=== PATIENT | male | born 1970 | race Two or more races ===

== ENCOUNTER 2020-11-20 09:47 | Outpatient (REF) | payer MEDICARE, MEDICAID, SELFPAY ==
[2020-11-20 11:29] LABS: Alanine Aminotransferase 52 U/L (0-40); Albumin Level 4.5 g/dL (3.5-5.0); Alkaline Phosphatase 113 U/L (39-117); Anion Gap 14 (12-20); Aspartate Amino Transferase 35 U/L (5-37); Bilirubin Total 2.1 mg/dL (0.0-1.0); Blood Urea Nitrogen 15 mg/dL (9-16); Carbon Dioxide 27 mmol/L (22-29); Chloride 104 mmol/L (96-108); Cholesterol 168 mg/dL; Estimated Glomerular Filt Rate > 60; Glucose Fasting 96 mg/dL (60-99); HDL Cholesterol 45 mg/dL; LDL Cholesterol Calculated 108 mg/dl; Potassium 4.3 mmol/l (3.3-5.1); Sodium 141 mmol/L (135-145); Total Protein 7.4 g/dL (6.5-8.0); Triglycerides 78 mg/dL
[2020-11-20 11:38] LABS: Prostate Specific Antigen Scr 0.22 ng/mL (<0.05-4.0); TSH reflex Free T4 1.16 mIU/mL (0.32-4.0)
== END 2020-11-20 09:48 | disposition home or self-care (01) ==
LOC: HO.WFDLDS 09:47
PROVIDERS: Visit Provider Family Medicine
DX: Z00.00 Encounter for general adult medical examination without abnormal findings (principal); Z12.5 Encounter for screening for malignant neoplasm of prostate; R03.0 Elevated blood-pressure reading, without diagnosis of hypertension
CPT/HCPCS: 36415; 80053; 80061; 84153; 84443

== ENCOUNTER → 2021-01-14 09:51 | Outpatient (BNVA) | payer MEDICARE, MEDICAID, SELFPAY | PROVIDERS: PCP Family Medicine; Visit Provider Psychiatry & Neurology Neurology | DX: Z13.89 Encounter for screening for other disorder (principal) | CPT/HCPCS: Q3014 ==

== ENCOUNTER 2021-01-28 10:38 | Outpatient (REF) | payer MEDICARE, MEDICAID, SELFPAY ==
[2021-01-28 14:16] LABS: Alanine Aminotransferase 40 U/L (0-40); Albumin Level 4.4 g/dL (3.5-5.0); Alkaline Phosphatase 95 U/L (39-117); Anion Gap 11 (12-20); Aspartate Amino Transferase 29 U/L (5-37); Bilirubin Total 1.2 mg/dL (0.0-1.0); Blood Urea Nitrogen 16 mg/dL (9-16); Carbon Dioxide 28 mmol/L (22-29); Chloride 106 mmol/L (96-108); Estimated Glomerular Filt Rate > 60; Glucose Random 99 mg/dL (60-115); Potassium 4.4 mmol/L (3.3-5.1); Sodium 141 mmol/L (135-145); Total Protein 7.1 g/dL (6.5-8.0)
== END 2021-01-28 10:39 | disposition home or self-care (01) ==
LOC: HO.WFDLDS 10:38
PROVIDERS: PCP Family Medicine; Visit Provider Family Medicine
DX: R74.01 Elevation of levels of liver transaminase levels (principal)
CPT/HCPCS: 36415; 80053

== ENCOUNTER → 2021-01-30 13:02 | Outpatient (REF) | payer MEDICARE, MEDICAID, SELFPAY | LOC: HO.SL 13:02 | PROVIDERS: PCP Family Medicine; Visit Provider Psychiatry & Neurology Neurology | DX: G47.33 Obstructive sleep apnea (adult) (pediatric) (principal) | CPT/HCPCS: 95806 ==

== ENCOUNTER → 2021-04-07 09:13 | Outpatient (BNVA) | payer MEDICARE, MEDICAID, SELFPAY | PROVIDERS: PCP Family Medicine; Visit Provider Anesthesiology | DX: M96.1 Postlaminectomy syndrome, not elsewhere classified (principal); M47.817 Spondylosis without myelopathy or radiculopathy, lumbosacral region; G90.512 Complex regional pain syndrome I of left upper limb; G89.4 Chronic pain syndrome; R10.84 Generalized abdominal pain | CPT/HCPCS: 99212 ==

== ENCOUNTER → 2021-04-08 10:26 | Outpatient (BNVA) | payer MEDICARE, MEDICAID, SELFPAY | PROVIDERS: PCP Family Medicine; Referring Provider Family Medicine; Visit Provider Psychiatry & Neurology Neurology | DX: G47.33 Obstructive sleep apnea (adult) (pediatric) (principal) | CPT/HCPCS: 99212 ==

== ENCOUNTER → 2021-04-21 09:14 | Outpatient (BNVA) | payer MEDICARE, MEDICAID, SELFPAY | PROVIDERS: PCP Family Medicine; Visit Provider Anesthesiology | DX: M96.1 Postlaminectomy syndrome, not elsewhere classified (principal); M47.817 Spondylosis without myelopathy or radiculopathy, lumbosacral region; G90.512 Complex regional pain syndrome I of left upper limb; R10.84 Generalized abdominal pain; G89.4 Chronic pain syndrome | CPT/HCPCS: 99212 ==

== ENCOUNTER → 2021-12-23 10:50 | Outpatient (BNVA) | payer MEDICARE, MEDICAID, SELFPAY | PROVIDERS: PCP Family Medicine; Referring Provider Family Medicine; Visit Provider Psychiatry & Neurology Neurology | DX: G47.33 Obstructive sleep apnea (adult) (pediatric) (principal) | CPT/HCPCS: 99212 ==

== ENCOUNTER 2023-05-19 12:39 | Outpatient (REF) | payer MEDICARE, MEDICAID, SELFPAY ==
[2023-05-21 16:54] LABS: CRP High Sensitivity 1.7 mg/L
== END 2023-05-19 12:40 | disposition home or self-care (01) ==
LOC: HO.WFDLDS 12:39
PROVIDERS: Visit Provider Family Medicine
DX: Z00.00 Encounter for general adult medical examination without abnormal findings (principal); Z12.5 Encounter for screening for malignant neoplasm of prostate; M54.50 Low back pain, unspecified; I10 Essential (primary) hypertension
CPT/HCPCS: 36415; 80053; 80061; 81003; 82043; 84153; 84443; 85025; 85652; 86141

== ENCOUNTER 2023-06-16 07:57 | Outpatient (AMB) | payer MEDICARE, MEDICAID, SELFPAY ==
[2023-06-16 07:58] VITALS: BMI 31.9
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
== END 2023-06-16 08:56 | disposition home or self-care (01) ==
PROVIDERS: PCP Family Medicine; Visit Provider Orthopaedic Surgery
DX: M65.311 Trigger thumb, right thumb (principal); M65.331 Trigger finger, right middle finger; M18.11 Unilateral primary osteoarthritis of first carpometacarpal joint, right hand; R20.2 Paresthesia of skin
CPT/HCPCS: 99204

== ENCOUNTER → 2023-06-16 07:57 | Outpatient (BNVA) | payer MEDICARE, MEDICAID, SELFPAY | PROVIDERS: PCP Family Medicine; Visit Provider Orthopaedic Surgery | DX: M65.311 Trigger thumb, right thumb (principal); M65.331 Trigger finger, right middle finger; M18.11 Unilateral primary osteoarthritis of first carpometacarpal joint, right hand; R20.2 Paresthesia of skin; R20.0 Anesthesia of skin | CPT/HCPCS: 99202 ==

== ENCOUNTER 2023-07-16 13:06 | Outpatient (AMB) | payer MEDICARE, MEDICAID, SELFPAY ==
[2023-07-16 13:20] VITALS: BP 122/70; PULSE 58; O2SAT 97; BMI 32.8
--- NOTE | 2023-07-16 13:20 | MHC.PC.OV ---
Vital Signs 07/16/23 13:20 Height 5 ft 7 in Weight 209 lb 4 oz BMI 32.8 BP 122/70 Blood Pressure Location Lt brachial Position Sitting Pulse 58 Pulse Source Pulse Oximeter Pulse Oximetry (%) 97 Oxygen Delivery Method Room Air Intake Visit Reasons: Extended exam with f/u labs and health maintenance Intake Note: Patient is here for extended exam and follow up on labs. Patientr would like a referral to [facility] on [address] Hand is still hurting him and his back pain. Allergies ibuprofen [From Motrin] Allergy (Mild, Verified 07/16/23 13:26) RASH tramadol Allergy (Unknown, Verified 07/16/23 13:26) hives Tobacco use date assessed: 07/16/23 Dental Screening Dental Screen Date: 07/16/23 Did you have a dental visit in the last 12 months?: Yes Did you have a dental problem in the last 6 months where you did not have access to dental care?: No Was dental information given to patient?: Patient has dentist HPI Extended exam with f/u labs and health maintenance HPI Details 53 y/o male presents to for an extended exam with f/u labs and health maintenance. Labs were drawn 05/19/23. Reviewed labs with pt. Triglycerides 41. TC 132. LDL 76. HDL 48. Microalbumin/Creat ratio 34.6. He has been eating a healthy diet. He rides his bike every morning. Blood pressure today is 122/70. He is on lisinopril 20mg daily. Pt reports ongoing hand pain/swelling. He reports he thinks last colonoscopy was 2-3 years ago at [place]. [facility] Medical History Cervical postlaminectomy syndrome Chronic pain syndrome Complex regional pain syndrome i of left upper limb Generalized abdominal pain Spondylosis without myelopathy or radiculopathy, lumbosacral region Surgical History History of lumbar fusion History of neck surgery History of surgery on left wrist Family History Father Throat cancer Mother Type 2 diabetes mellitus Breast cancer Sister Stomach cancer Social History (Reviewed 07/16/23 @ 13:27 by Zulema Iglesias [facility] House Patient Tobacco Use Status: Former Tobacco user Tobacco use type: Cigarette Cigarette Packs Per Day: 2 Years Smoked: 15 patient quit in November this year. 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 1. Little interest or pleasure in doing things: not at all 2. Feeling down, depressed, or hopeless: not at all 3. Trouble falling or staying asleep, or sleeping too much: not at all 4. Feeling tired or having little energy: not at all 5. Poor appetite or overeating: not at all 6. Feeling bad about yourself - or that you are a failure or have let yourself or your family down: not at all 7. Trouble concentrating on things, such as reading the newspaper or watching television: not at all 8. Moving or speaking so slowly that other people could have noticed. Or the opposite - being so fidgety or restless that you have been moving around a lot more than usual: not at all 9. Thoughts that you would be better off or of hurting yourself in some way: not at all Total score: 0 Source: Developed by Drs. Len Gonzalez, Raegan James, Dago Richardson and colleagues, with an educational virginie from [employer]. Thrive Questionnaire I am a: Patient What is your living situation today?: I have a steady place to live Within the past 12 months, did the food you bought not last and you didn't have the money to get more?: Never true Within the past 12 months, did you worry whether your food would run out before you got money to buy more?: Never true Do you have trouble paying for medicines?: No Do you have trouble getting transportation to medical appointments?: No Do you have trouble paying your heating and electricity bill?: No Do you have trouble taking care of your child, family member or friend?: No Do you have trouble with day-to-day activities such as bathing, preparing meals, shopping, managing finances, etc.?: No Are you currently unemployed and looking for a job?: No Are you interested in more education?: No AUDIT C Alcohol Use Questionnaire (AUDIT-C) 1. How often do you have a drink containing alcohol?: Monthly or less 2. How many drinks containing alcohol do you have on a typical day when you are drinking?: 1 or 2 3. How often do you have six or more drinks on one occasion?: Never Total Score: 1 MORGAN-7 AMB Questionnaire MORGAN-7 Date MORGAN - 7 assessed: 07/16/23 Feeling nervous, anxious, or on edge: 0 = Not at all Not being able to stop or control worryin = Not at all Worrying too much about different things: 0 = Not at all Trouble relaxin = Not at all Being so restless that it is hard to sit still: 0 = Not at all Becoming easily annoyed or irritable: 0 = Not at all Feeling afraid as if something awful might happen: 0 = Not at all Total MORGAN-7 score (0-4 normal; 5-9 mild; 10-14 moderate; 15-21 severe): 0 Source: Developed by Drs. Len Gonzalez, Raegan James, Dago Richardson and colleagues, with an educational virginie from [employer]. Review of Systems Const Denies chills, Denies fatigue, Denies fever(s), Denies headache(s) and Denies weakness Eyes Denies change in vision ENT Denies dizziness, Denies headache(s), Denies hearing loss, Denies nasal congestion, Denies sinus pain, Denies sinus pressure and Denies sore throat Card Denies chest pain, Denies lightheadedness, Denies dyspnea and Denies other (palpitations) Resp Denies cough, Denies dyspnea and Denies wheezing GI Denies abdominal pain, Denies melena, Denies hematochezia, Denies change in bowel habits, Denies dyspepsia and Denies nausea Denies hematuria and Denies dysuria Musc Denies abnormal gait, Denies myalgias, Denies arthralgias, Denies numbness and Denies tingling Skin/Breast Denies rash, Denies unusual bruising and Denies wounds Neuro Denies abnormal gait, Denies dizziness, Denies headache(s), Denies memory loss, Denies numbness, Denies Sensory deficit (Neuro), Denies tingling and Denies weakness Psych Denies anxiety, Denies depression and Denies memory loss Endo Denies cold intolerance, Denies fatigue, Denies heat intolerance, Denies polydipsia and Denies polyuria Valentin/Lymph Denies easy bleeding and Denies easy bruising Aller/Immun Denies wheezing Physical exam (Primary Care) Vital Signs: Last Vital Signs Pulse 58 07/16/23 13:20 BP 122/70 07/16/23 13:20 Pulse Ox 97 07/16/23 13:20 Oxygen Delivery Method Room Air 07/16/23 13:20 BMI result Body Mass Index 32.8 Tobacco/Smoking Status: Tobacco use Status Tobacco use date assessed 07/16/23 07/16/23 13:34 Patient Tobacco Use Status Former Tobacco user 07/16/23 13:24 Tobacco use type Cigarette 07/16/23 13:24 e-Cigarette/Vaping Use Never Used 07/16/23 13:24 PHQ-9: PHQ-9 Score PHQ-9: Total score 0 07/16/23 14:15 Const General: no acute distress, well developed, alert and awake Nutritional Appearance: well nourished Orientation/consciousness: patient oriented x3 HENMT Head: Yes normocephalic and Yes atraumatic Ears: hearing grossly normal bilaterally and TM's normal bilaterally General nose exam: Normal external nose present and Normal nares present Mouth: Normal oral and palatal mucosa present and moist mucous membranes Teeth and gingiva: dentition normal Throat: Yes posterior oropharynx normal Eyes General: appearance normal, both eyes and all related structures Pupils: Equal, round and reactive pupils present and Pupil accommodation reflex normal EOM: EOMs intact bilaterally Neck Neck: Yes normal visual inspection, Yes no lymphadenopathy and Yes trachea midline Thyroid: Thyroid normal Carotids: no bruits Lymphatic: no lymphadenopathy noted Chest Chest palpation & inspection: normal inspection of the chest Resp Effort & Inspection: normal respiratory effort Auscultation: clear to auscultation bilaterally Cardio Rate: regular rate Rhythm: regular rhythm Heart sounds: S1 normal heart sound present, S2 normal heart sound present, no gallops, no murmurs and no rubs Bruits: no abdominal aortic bruits and no carotid bruits GI Palpation (GI): No Abdominal aortic bruit present, Soft to palpation, nontender, No hepatosplenomegaly present and No Rebound tenderness present Auscultation: normal bowel sounds General: Yes no CVA tenderness Back/Spine/Pelvis Back: no CVA tenderness Cervical Spine: cervical ROM normal and No Cervical spine tenderness Thoracic/Lumbar Spine: thoraco-lumbar ROM normal, No pain with thoraco-lumbar ROM, No thoracic spinal tenderness and No lumbar spinal tenderness Skin Lesions: no lesions Rashes: no rashes Trauma: no lacerations or abrasions Wounds: no wounds Nails: normal Neuro General: patient oriented x3 Cranial nerves: Yes Equal, round and reactive pupils present Cognition (Neuro): normal cognition Gait exam (Neuro): Normal gait present Motor exam (neuro): 5/5 motor strength present throughout Sensory Exam: No Sensory deficit (Neuro) Deep tendon reflexes (DTR's): Right patellar reflex intensity grade: 2+ and Left patellar reflex intensity grade: 2+ Extrem General: Yes normal to inspection and Yes edema (R wrist swelling and pain, decreased range of motion) Psych Appearance: grossly normal Affect: normal affect Attitude: cooperative Thought process: Normal thought process present Assessment and Plan Assessment & Plan (1) Hypertension: Code(s): I10 - Essential (primary) hypertension Plan: Blood pressure appears controlled. Goal is less than 140/90 Continue current medication (2) Microalbuminuria: Code(s): R80.9 - Proteinuria, unspecified Plan: Mild microalbuminuria. Will repeat with next lab work Maintain good blood pressure control (3) Screening for colon cancer: Code(s): Z12.11 - Encounter for screening for malignant neoplasm of colon Plan: Will get prior record and refer patient as needed (4) Screening for prostate cancer: Code(s): Z12.5 - Encounter for screening for malignant neoplasm of prostate Plan: PSA within normal limits (5) Right hand pain: Code(s): M79.641 - Pain in right hand Plan: Ongoing right hand pain and swelling. Referring him to Hand surgery, Dr. Haynes (6) Adult general medical exam: Code(s): Z00.00 - Encounter for general adult medical examination without abnormal findings Plan: 53-year-old male presents for extended exam Encouraged healthy diet with active lifestyle and plenty of exercise Orders: Orders Comprehensive Met. Panel Today I10 - Essential (primary) hypertension Microalbumin, Random (w Creat) Today I10 - Essential (primary) hypertension, R80.9 - Proteinuria, unspecified Referrals Hand Surgery Referral M65.311 - Trigger thumb, right thumb, M79.641 - Pain in right hand, R20.0 - Anesthesia of skin, R20.2 - Paresthesia of skin Medications: New prednisone 4 tabs daily for 4 days, 3 tabs daily for 2 days, 2 tabs daily for 2 days, 1 tab daily for 2 days PO daily; 28 tabs 0RF 10 days oxycodone-acetaminophen 5-325 mg (Percocet) Partial Fill upon patient request. 1 tab PO BID PRN 6 tabs 0RF pain 3 days Coding Level of Care Code Est Pt Level 4 (57464) Diagnoses Hypertension I10 Microalbuminuria R80.9 Screening for colon cancer Z12.11 Screening for prostate cancer Z12.5 Right hand pain M79.641 Adult general medical exam Z00.00
== END 2023-07-16 14:47 | disposition home or self-care (01) ==
PROVIDERS: PCP Family Medicine; Visit Provider Family Medicine
DX: I10 Essential (primary) hypertension (principal); R80.9 Proteinuria, unspecified; Z12.11 Encounter for screening for malignant neoplasm of colon; Z12.5 Encounter for screening for malignant neoplasm of prostate; M79.641 Pain in right hand; Z00.00 Encounter for general adult medical examination without abnormal findings
CPT/HCPCS: 99214

== ENCOUNTER 2023-10-28 12:06 | Outpatient (REF) | payer MEDICARE, MEDICAID, SELFPAY ==
[2023-10-28 14:56] LABS: Alanine Aminotransferase 49 U/L (0-40); Albumin Level 4.3 g/dL (3.5-5.0); Alkaline Phosphatase 71 U/L (39-117); Anion Gap 10 (12-20); Aspartate Amino Transferase 38 U/L (5-37); Bilirubin Total 1.2 mg/dL (0.0-1.0); Blood Urea Nitrogen 15 mg/dL (9-16); Calcium 9.7 mg/dL (8.4-10.2); Carbon Dioxide 26 mmol/L (22-29); Chloride 107 mmol/L (96-108); Estimated Glomerular Filt Rate > 60; Glucose Random 102 mg/dL (60-115); Potassium 4.2 mmol/L (3.3-5.1); Sodium 139 mmol/L (135-145); Total Protein 7.6 g/dL (6.5-8.0)
== END 2023-10-28 12:07 | disposition home or self-care (01) ==
LOC: HO.WFDLDS 12:06
PROVIDERS: Visit Provider Family Medicine
DX: I10 Essential (primary) hypertension (principal)
CPT/HCPCS: 36415; 80053

== ENCOUNTER 2023-11-01 11:36 | Outpatient (REF) | payer MEDICARE, MEDICAID, SELFPAY ==
[2023-11-02 11:49] LABS: Appearance Urine Clear; Color Urine Yellow; Glucose Urine UA Negative (Negative); Leukocyte Esterase Urine Negative (Negative); Nitrite Urine Negative (Negative); PH 7.5 (5.0-9.0); Urine Blood Negative (Negative); Urine Ketones Negative (Negative); Urine Protein Negative (Neg-Trace)
[2023-11-02 12:56] LABS: Creatinine Urine 55.93 mg/dL; Microalbum/Creatinine Ratio Ur 64.3 ug/mg cr (<30)
== END 2023-11-01 11:37 | disposition home or self-care (01) ==
LOC: HO.LNP 11:36
PROVIDERS: Visit Provider Family Medicine
DX: Z00.00 Encounter for general adult medical examination without abnormal findings (principal); R80.9 Proteinuria, unspecified; I10 Essential (primary) hypertension
CPT/HCPCS: 81003; 82043; 82570

== ENCOUNTER 2023-11-01 15:32 | Outpatient (AMB) | payer MEDICARE, MEDICAID, SELFPAY ==
--- NOTE | 2023-11-01 15:49 | MHC.PC.OV ---
Vital Signs 11/01/23 15:50 Height 5 ft 7 in Weight 215 lb 2 oz BMI 33.7 BP 128/76 Blood Pressure Location Lt brachial Position Sitting Pulse 76 Pulse Source Pulse Oximeter Pulse Oximetry (%) 97 Oxygen Delivery Method Room Air Intake Visit Reasons: f/u hypertension and microalbuminuria Intake Note: Patient is here to follow up on hypertension and microalbuminuria. Allergies ibuprofen [From Motrin] Allergy (Mild, Verified 11/01/23 15:53) RASH tramadol Allergy (Unknown, Verified 11/01/23 15:53) hives Tobacco use date assessed: 11/01/23 HPI f/u hypertension and microalbuminuria HPI Details 53 y/o male presents to f/u hypertension and microalbuminuria. Labs were drawn 10/28/23. Reviewed labs with pt. Elevated liver enzymes - AST 38 and ALT 49. Creatinine levels are fine. Blood pressure today 128/76. He is on lisinopril 20mg daily. [facility] History Chronic pain syndrome Generalized abdominal pain Complex regional pain syndrome i of left upper limb Spondylosis without myelopathy or radiculopathy, lumbosacral region Cervical postlaminectomy syndrome Surgical History History of neck surgery History of lumbar fusion History of surgery on left wrist Family History Father Throat cancer Mother Type 2 diabetes mellitus Breast cancer Sister Stomach cancer Social History Housing: House Patient Tobacco Use Status: Former Tobacco user Tobacco use type: Cigarette Cigarette Packs Per Day: 2 Years Smoked: 15 patient quit in November this year. 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 Len Gonzalez, Raegan James, Dago Richardson and colleagues, with an educational virginie from [employer]. Review of Systems Const Denies chills, Denies fatigue, Denies fever(s), Denies headache(s) and Denies weakness ENT Denies dizziness and Denies headache(s) Card Denies chest pain, Denies lightheadedness, Denies dyspnea and Denies other (Palpitations) Resp Denies cough, Denies dyspnea, Denies wheezing and Denies other ( shortness of breath) Musc Denies numbness and Denies tingling Neuro Denies dizziness, Denies headache(s), Denies numbness, Denies tingling, Denies paresthesias and Denies weakness Psych Denies anxiety and Denies depression Endo Denies fatigue Aller/Immun Denies wheezing Physical exam (Primary Care) Vital Signs: Last Vital Signs Pulse 76 11/01/23 15:50 BP 128/76 11/01/23 15:50 Pulse Ox 97 11/01/23 15:50 Oxygen Delivery Method Room Air 11/01/23 15:50 BMI result Body Mass Index 33.7 Tobacco/Smoking Status: Tobacco use Status Tobacco use date assessed 11/01/23 11/01/23 15:56 Patient Tobacco Use Status Former Tobacco user 11/01/23 15:50 Tobacco use type Cigarette 11/01/23 15:50 e-Cigarette/Vaping Use Never Used 11/01/23 15:50 Const General: no acute distress and well developed Nutritional Appearance: well nourished Orientation/consciousness: patient oriented x3 [facility]: Yes normocephalic and Yes atraumatic Eyes General: appearance normal, both eyes and all related structures Pupils: Equal, round and reactive pupils present EOM: EOMs intact bilaterally Resp Effort & Inspection: normal respiratory effort Auscultation: clear to auscultation bilaterally Cardio Rate: regular rate Rhythm: regular rhythm Heart sounds: S1 normal heart sound present, S2 normal heart sound present, no gallops, no murmurs and no rubs Neuro General: patient oriented x3 and gait normal Cranial nerves: Yes Equal, round and reactive pupils present Psych Affect: normal affect Assessment and Plan Assessment & Plan (1) Hypertension: Code(s): I10 - Essential (primary) hypertension Plan: Blood?pressure?is?controlled.??Goal?is?less?than?140/90 He?took?his?lisinopril?today?but?he?does?not?take?it?every?day Encouraged?more?consistent?use (2) Microalbuminuria: Code(s): R80.9 - Proteinuria, unspecified Plan: Encouraged?consistent?use?of?lisinopril Will?recheck?with?next?set?of?lab (3) Elevated liver enzymes: Code(s): R74.8 - Abnormal levels of other serum enzymes Plan: Likely?fatty?liver?disorder?and?I?encouraged?weight?loss Will?recheck?labs?with?next?blood?draw Orders: Orders Comprehensive Met. Panel Today R74.8 - Abnormal levels of other serum enzymes Microalbumin, Random (w Creat) Today I10 - Essential (primary) hypertension, R80.9 - Proteinuria, unspecified UA and rflx microscopic Today R80.9 - Proteinuria, unspecified, Z00.00 - Encounter for general adult medical examination without abnormal findings Medications: Refilled oxycodone-acetaminophen 5-325 mg (Percocet) Partial Fill upon patient request. 1 tab PO BID 3 days PRN 6 tabs 0RF pain Coding Level of Care Code Est Pt Level 4 (79568) Diagnoses Hypertension I10 Microalbuminuria R80.9 Elevated liver enzymes R74.8
[2023-11-01 15:50] VITALS: BP 128/76; PULSE 76; O2SAT 97; BMI 33.7
== END 2023-11-01 16:56 | disposition home or self-care (01) ==
PROVIDERS: PCP Family Medicine; Visit Provider Family Medicine
DX: I10 Essential (primary) hypertension (principal); R80.9 Proteinuria, unspecified; R74.8 Abnormal levels of other serum enzymes
CPT/HCPCS: 99214

== ENCOUNTER 2023-12-06 07:43 | Outpatient (AMB) | payer MEDICARE, MEDICAID, SELFPAY ==
--- NOTE | 2023-12-06 08:08 | MHC.PC.OV ---
Vital Signs 12/06/23 08:09 Height 5 ft 7 in Weight 211 lb BMI 33.0 BP 122/82 Blood Pressure Location Lt brachial Position Sitting Respiration 13 Pulse 79 Pulse Source Pulse Oximeter Pulse Oximetry (%) 97 Oxygen Delivery Method Room Air Intake Visit Reasons: follow up ongoing pain Intake Note: Patient is here for ongoing R hand pain. Patient is having surgery on 02/23/24 at [facility] with Dr. Haynes. Patient called in about 2 weeks ago due to flying to [place] to visit his mother and needing a few tablets of pain medication to assist with pain. Patient also states while he was in [place] he caught a cold. Vending Machine Host/Hostess Required: No Accompanied by: Self / Same As Patient Allergies ibuprofen [From Motrin] Allergy (Mild, Verified 12/06/23 08:24) RASH tramadol Allergy (Unknown, Verified 12/06/23 08:24) hives Medication List - Last Reconciled 12/06/23 by Regla Hall, [employer]-BC flu vac qs 2019(4 yr up)CD(PF) mL IM lidocaine 5% (Lidoderm) 2 patches topical DAILY 30 days lisinopril 20 mg PO DAILY Tobacco use date assessed: 12/06/23 Dental Screening Dental Screen Date: 12/06/23 Did you have a dental visit in the last 12 months?: Yes Did you have a dental problem in the last 6 months where you did not have access to dental care?: No Was dental information given to patient?: Patient has dentist HPI HPI Comments History of Present Illness Details Here today requesting narcotics for chronic pain. Reports chronic pain, managed by PCP Denies being active w/ Pain Mgmt at [facility] anymore. Pain today is in R hand/wrist. Active w/ hand specialist w/ plan for surgery in February 2024. Also c/o cold like sx that developed about 2 weeks ago in [place]. CC of dry Cough. UTD on vaccines. Denies fever, chills. [facility] Medical History Chronic pain syndrome Generalized abdominal pain Complex regional pain syndrome i of left upper limb Spondylosis without myelopathy or radiculopathy, lumbosacral region Cervical postlaminectomy syndrome Surgical History History of neck surgery History of lumbar fusion History of surgery on left wrist Family History Father Throat cancer Mother Type 2 diabetes mellitus Breast cancer Sister Stomach cancer Social History Household Members: Spouse and Children Housing: House Are you a primary after school caregiver to a significant other at home: No Do you presently have visiting nurse or other home services: No 75 years or older and lives alone: No Alcohol intake: never Patient Tobacco Use Status: Former Tobacco user Tobacco use type: Cigarette Cigarette Packs Per Day: 2 Years Smoked: 15 patient quit in November this year. e-Cigarette/Vaping Use: Never Used Second Hand Smoke Exposure: No service: No Current occupational status: disabled Current occupational exposures/hazards: No Sexual orientation: Unable to collect Gender identity: Unable to collect Cognitive needs: No Hearing needs: No Vision needs: No Questionnaire PHQ-9 Over the last 2 weeks, how often have you been bothered by any of the following problems? 1. Little interest or pleasure in doing things: not at all 2. Feeling down, depressed, or hopeless: not at all 3. Trouble falling or staying asleep, or sleeping too much: not at all 4. Feeling tired or having little energy: not at all 5. Poor appetite or overeating: not at all 6. Feeling bad about yourself - or that you are a failure or have let yourself or your family down: not at all 7. Trouble concentrating on things, such as reading the newspaper or watching television: not at all 8. Moving or speaking so slowly that other people could have noticed. Or the opposite - being so fidgety or restless that you have been moving around a lot more than usual: not at all 9. Thoughts that you would be better off or of hurting yourself in some way: not at all Total score: 0 Depression Screening Interpretation: Negative Depression Screening Done: Yes 16115 - PHQ-9 Billing: Yes Source: Developed by Drs. Len Gonzalez, Raegan James, Dago Richardson and colleagues, with an educational virginie from [employer]. Thrive Questionnaire Date Thrive assessed: 12/06/23 I am a: Patient What is your living situation today?: I have a steady place to live Within the past 12 months, did the food you bought not last and you didn't have the money to get more?: Never true Within the past 12 months, did you worry whether your food would run out before you got money to buy more?: Never true Do you have trouble paying for medicines?: No Do you have trouble getting transportation to medical appointments?: No Do you have trouble paying your heating and electricity bill?: No Do you have trouble taking care of your child, family member or friend?: No Do you have trouble with day-to-day activities such as bathing, preparing meals, shopping, managing finances, etc.?: No Are you currently unemployed and looking for a job?: No Are you interested in more education?: No Please select the resources that you would like help with: None Currently or been in a relationship where the following occur: no concerns reported THRIVE Score: 0 MORGAN-7 AMB Questionnaire MORGAN-7 Date MORGAN - 7 assessed: 07/16/23 Source: Developed by Drs. Len Gonzalez, Raegan James, Dago Richardson and colleagues, with an educational virginie from [employer]. Review of Systems Const All systems reviewed & are unremarkable except as noted in HPI and below Physical exam (Primary Care) Vital Signs: Last Vital Signs Pulse 79 12/06/23 08:09 Resp 13 12/06/23 08:09 BP 122/82 12/06/23 08:09 Pulse Ox 97 12/06/23 08:09 Oxygen Delivery Method Room Air 12/06/23 08:09 BMI result Body Mass Index 33.0 Tobacco/Smoking Status: Tobacco use Status Tobacco use date assessed 12/06/23 12/06/23 08:20 Patient Tobacco Use Status Former Tobacco user 12/06/23 08:20 Tobacco use type Cigarette 12/06/23 08:20 e-Cigarette/Vaping Use Never Used 12/06/23 08:20 PHQ-9: PHQ-9 Score PHQ-9: Total score 0 12/06/23 08:29 Depression Screening Interpretation: Negative Thrive Assessment: Date of Thrive Assessment Date Thrive assessed 12/06/23 12/06/23 08:21 Currently or been in a relationship where the following occur: no concerns reported Const Other: awake alert pleasant pupils pinpoint LS CTAB RRR Assessment and Plan Assessment & Plan (1) Numbness and tingling in right hand: Code(s): R20.0 - Anesthesia of skin; R20.2 - Paresthesia of skin (2) Arthritis of carpometacarpal (CMC) joint of right thumb: Code(s): M18.11 - Unilateral primary osteoarthritis of first carpometacarpal joint, right hand (3) Trigger middle finger of right hand: Code(s): M65.331 - Trigger finger, right middle finger (4) Trigger thumb of right hand: Code(s): M65.311 - Trigger thumb, right thumb (5) Viral URI with cough: Code(s): J06.9 - Acute upper respiratory infection, unspecified Plan Total time spent caring for the patient today was 60 minutes. This includes time spent before the visit reviewing the chart, time spent during the visit, and time spent after the visit on documentation Medications: New oxycodone-acetaminophen 5-325 mg (Percocet) Partial Fill upon patient request. 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 FU with Hand Surgeon. Supportive care for Viral illness w/ OTC medications. Coding Level of Care Code Est Pt Level 5 (79065) Diagnoses Numbness and tingling in right hand R20.0; R20.2 Arthritis of carpometacarpal (CMC) joint of right thumb M18.11 Trigger middle finger of right hand M65.331 Trigger thumb of right hand M65.311 Viral URI with cough J06.9
[2023-12-06 08:09] VITALS: BP 122/82; PULSE 79; RESP 13; O2SAT 97; BMI 33.0
== END 2023-12-06 08:52 | disposition home or self-care (01) ==
PROVIDERS: PCP Family Medicine; Visit Provider Nurse Practitioner Family
DX: R20.0 Anesthesia of skin (principal); R20.2 Paresthesia of skin; M18.11 Unilateral primary osteoarthritis of first carpometacarpal joint, right hand; M65.331 Trigger finger, right middle finger; M65.311 Trigger thumb, right thumb; J06.9 Acute upper respiratory infection, unspecified
CPT/HCPCS: 99215

== ENCOUNTER 2024-02-14 14:36 | Outpatient (AMB) | payer MEDICARE, MEDICAID, SELFPAY ==
[2024-02-14 14:41] VITALS: BP 122/76; PULSE 76; O2SAT 98; BMI 33.2
--- NOTE | 2024-02-14 14:41 | A.OFFPC_ITS ---
Vital Signs 02/14/24 14:41 Height 5 ft 7 in Weight 212 lb BMI 33.2 BP 122/76 Blood Pressure Location Lt brachial Position Sitting Pulse 76 Pulse Source Pulse Oximeter Pulse Oximetry (%) 98 Oxygen Delivery Method Room Air Intake Visit Reasons: f/u hypertension, elevated liver enzymes Intake Note: Patient is here to follow up on hypertension and liver enzymes, and is having hand surgery on the . Allergies ibuprofen [From Motrin] Allergy (Mild, Verified 02/14/24 14:42) RASH tramadol Allergy (Unknown, Verified 02/14/24 14:42) hives Tobacco use date assessed: 02/14/24 Dental Screening Dental Screen Date: 12/06/23 HPI f/u hypertension, elevated liver enzymes HPI Details 53 y/o male presents to f/u hypertension , elevated liver enzymes. Blood pressure today 122/76. He is on lisinopril 20mg daily. Pt notes he is having hand surgery on the . Patient presents for preoperative clearance prior to?carpal?tunnel?surgery Procedure: ?Carpal?tunnel?release Date:02/23/24 Surgeon: Dr Haynes Anesthesia:??General Cardiac Hx: None Pulmonary Hx: None Prior Surgical complications: Ventral hernia dehiscence & infection. L wrist surgery infection. Prior Anesthesia Complications: None Coag Issues: none Functional [place]: Good functional reserve. Able to walk multiple city blocks/climb flights of stairs. [facility] Medical History Chronic pain syndrome Generalized abdominal pain Complex regional pain syndrome i of left upper limb Spondylosis without myelopathy or radiculopathy, lumbosacral region Cervical postlaminectomy syndrome Surgical History History of neck surgery History of lumbar fusion History of surgery on left wrist Family History Father Throat cancer Mother Type 2 diabetes mellitus Breast cancer Sister Stomach cancer Social History Household Members: Spouse and Children Housing: House Are you a primary hospice home care coordinator to a significant other at home: No Do you presently have visiting nurse or other home services: No 75 years or older and lives alone: No Alcohol intake: never Patient Tobacco Use Status: Former Tobacco user Tobacco use type: Cigarette Cigarette Packs Per Day: 2 Years Smoked: 15 patient quit in November this year. e-Cigarette/Vaping Use: Never Used Second Hand Smoke Exposure: No service: No Current occupational status: disabled Current occupational exposures/hazards: No Sexual orientation: Unable to collect Gender identity: Unable to collect Cognitive needs: No Hearing needs: No Vision needs: No Questionnaire Thrive Questionnaire Date Thrive assessed: 12/06/23 MORGAN-7 AMB Questionnaire MORGAN-7 Date MORGAN - 7 assessed: 07/16/23 Source: Developed by Drs. Len Gonzalez, Raegan James, Dago Richardson and colleagues, with an educational virginie from [employer]. Physical exam (Primary Care) Vital Signs: Last Vital Signs Pulse 76 02/14/24 14:41 BP 122/76 02/14/24 14:41 Pulse Ox 98 02/14/24 14:41 Oxygen Delivery Method Room Air 02/14/24 14:41 BMI result Body Mass Index 33.2 Tobacco/Smoking Status: Tobacco use Status Tobacco use date assessed 02/14/24 02/14/24 14:43 Patient Tobacco Use Status Former Tobacco user 02/14/24 14:43 Tobacco use type Cigarette 02/14/24 14:43 e-Cigarette/Vaping Use Never Used 02/14/24 14:43 Thrive Assessment: Date of Thrive Assessment Date Thrive assessed 12/06/23 02/14/24 14:43 Assessment and Plan Assessment & Plan (1) Carpal tunnel syndrome: Code(s): G56.00 - Carpal tunnel syndrome, unspecified upper limb Plan: Carpal?tunnel?syndrome?and?patient?has?upcoming?surgery?on?February?. Here?for?preoperative?clearance. No?prior?cardiac?disease?or?pulmonary?disease. Cardiac?and?pulmonary?exams?today?are?within?normal?limits No?prior?complications?with?anesthesia. No?coagulopathies He?has?had?prior?surgical?infections?and?dehiscence. Good?functional?reserve Low?intermediate?risk?patient?for?low?risk?procedure *?no?contraindications?to?proceeding?with?proposed?procedure Will?give?him?a?short?script?to?cover?pain?until?the?day?of?his?surgery.??Pain?c ontrol?in?the?postoperative.??As?per?surgeon. (2) Hypertension: Code(s): I10 - Essential (primary) hypertension Plan: Blood?pressure?is?well?controlled.??Goal?is?less?than?140/90 Continue?current?medication?regimen (3) Elevated transaminase level: Code(s): R74.01 - Elevation of levels of liver transaminase levels Plan: Mildly?elevated?transaminases Likely?secondary?to?fatty?liver?disorder?and?I?recommend?weight?loss Will?recheck?with?his?next?blood?draw (4) Pre-operative clearance: Code(s): Z01.818 - Encounter for other preprocedural examination Plan: As?above *?no?contraindications?to?proceeding?with?proposed?surgery (5) Ventral hernia: Code(s): K43.9 - Ventral hernia without obstruction or gangrene Plan: History?of?ventral?hernia?and?surgery?with?complications. More?recently?is?having?pain?slightly?left?of?midline?and?mild?impulse?with?call Check?ultrasound?and?refer?him?to?his?surgeon,?DrEren?Ashish Orders: Orders US abdomen limited Today K43.9 - Ventral hernia without obstruction or gangrene Complete Blood Count Auto Diff Today Z00.00 - Encounter for general adult medical examination without abnormal findings, Z01.818 - Encounter for other preprocedural examination Comprehensive Met. Panel Today R74.8 - Abnormal levels of other serum enzymes Referrals General Surgery Referral K43.9 - Ventral hernia without obstruction or gangrene Coding Level of Care Code Est Pt Level 4 (29357) Diagnoses Carpal tunnel syndrome G56.00 Hypertension I10 Elevated transaminase level R74.01 Pre-operative clearance Z01.818 Ventral hernia K43.9
== END 2024-02-14 15:06 | disposition home or self-care (01) ==
PROVIDERS: PCP Family Medicine; Visit Provider Family Medicine
DX: G56.00 Carpal tunnel syndrome, unspecified upper limb (principal); I10 Essential (primary) hypertension; R74.01 Elevation of levels of liver transaminase levels; Z01.818 Encounter for other preprocedural examination; K43.9 Ventral hernia without obstruction or gangrene
CPT/HCPCS: 99214

== ENCOUNTER 2024-03-10 09:18 | Outpatient (REF) | payer MEDICARE, MEDICAID, SELFPAY ==
--- NOTE | ~2024-03-10 | US_ITS ---
EXAMINATION: US ABDOMEN LIMITED CLINICAL INFORMATION: Ventral hernia without obstruction or gangrene. Left lower abdomen by umbilicus possible ventral hernia without obstruction or gangrene. No previous imaging. COMPARISON: None available. TECHNIQUE: Real-time imaging of the left lower abdomen by umbilicus. FINDINGS: Targeted ultrasound images were obtained by the supervisor benzene refining of the area of concern as indicated by the patient in the left lower abdomen in the region of the umbilicus and demonstrated no discrete hernia, mass or fluid collection. Limited visualization due to bowel gas. Radiologist was not in attendance. Images were later provided for interpretation. US/US abdomen limited IMPRESSION: No discrete hernia, mass or fluid collection identified in the area of concern as indicated by the patient in the left lower abdomen in the region of the umbilicus. CT scan could be considered for further evaluation..
== END 2024-03-10 09:19 | disposition home or self-care (01) ==
LOC: HO.US 09:18
PROVIDERS: PCP Family Medicine; Visit Provider Family Medicine
DX: K43.9 Ventral hernia without obstruction or gangrene (principal)
CPT/HCPCS: 76705

== ENCOUNTER 2024-10-27 10:42 | Outpatient (AMB) | payer MEDICARE, MEDICAID, SELFPAY ==
--- NOTE | 2024-10-27 11:05 | MHC.PC.OV ---
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 Blood pressure today 152/96. He is on lisinopril 20mg daily. He notes he had forgotten to take this today. Ongoing complaints of back pain. [facility] Medical History (Updated 10/27/24 @ 11:07 by Katherine Gannon CMA) Umbilical hernia Chronic pain syndrome Generalized abdominal pain Complex regional pain syndrome i of left upper limb Spondylosis without myelopathy or radiculopathy, lumbosacral region Cervical postlaminectomy syndrome Surgical History History of carpal tunnel surgery of right wrist History of neck surgery History of lumbar fusion History of surgery on left wrist Family History Father Throat cancer Mother Type 2 diabetes mellitus Breast cancer Sister Stomach cancer Social History (Updated 10/27/24 @ 11:18 by Katherine Gannon CMA) Household Members: Spouse and Children Housing: House Are you a primary auto care center manager to a significant other at home: No Do you presently have visiting nurse or other home services: No 75 years or older and lives alone: No Alcohol intake: never Patient Tobacco Use Status: Former Tobacco user Tobacco use type: Cigarette Cigarette Packs Per Day: 2 Years Smoked: 15 patient quit in November this year. e-Cigarette/Vaping Use: Never Used Second Hand Smoke Exposure: No service: No Current occupational status: disabled Current occupational exposures/hazards: No Sexual orientation: Unable to collect Gender identity: Unable to collect Cognitive needs: No Hearing needs: No Vision needs: No Questionnaire PHQ-9 Over the last 2 weeks, how often have you been bothered by any of the following problems? 1. Little interest or pleasure in doing things: not at all 2. Feeling down, depressed, or hopeless: not at all 3. Trouble falling or staying asleep, or sleeping too much: several days 4. Feeling tired or having little energy: several days 5. Poor appetite or overeating: not at all 6. Feeling bad about yourself - or that you are a failure or have let yourself or your family down: not at all 7. Trouble concentrating on things, such as reading the newspaper or watching television: not at all 8. Moving or speaking so slowly that other people could have noticed. Or the opposite - being so fidgety or restless that you have been moving around a lot more than usual: not at all 9. Thoughts that you would be better off or of hurting yourself in some way: not at all Total score: 2 Source: Developed by Drs. Len Gonzalez, Raegan James, Dago Richardson and colleagues, with an educational virginie from [employer]. Thrive Questionnaire Date Thrive assessed: 10/20/24 I am a: Patient What is your living situation today?: I have a steady place to live Within the past 12 months, did the food you bought not last and you didn't have the money to get more?: Often true Within the past 12 months, did you worry whether your food would run out before you got money to buy more?: I choose not to answer this question Do you have trouble paying for medicines?: No Do you have trouble getting transportation to medical appointments?: No Do you have trouble paying your heating and electricity bill?: Yes Do you have trouble taking care of your child, family member or friend?: No Do you have trouble with day-to-day activities such as bathing, preparing meals, shopping, managing finances, etc.?: Yes Are you currently unemployed and looking for a job?: No Are you interested in more education?: No Please select the resources that you would like help with: Food, Transportation and Utilities Currently or been in a relationship where the following occur: No concerns reported THRIVE Score: 2 AUDIT C Alcohol Use Questionnaire (AUDIT-C) 2. How many drinks containing alcohol do you have on a typical day when you are drinking?: 1 or 2 Total Score: 0 MORGAN-7 AMB Questionnaire MORGAN-7 Date MORGAN - 7 assessed: 07/16/23 Feeling nervous, anxious, or on edge: 0 = Not at all Not being able to stop or control worryin = Not at all Worrying too much about different things: 0 = Not at all Trouble relaxin = Several days Being so restless that it is hard to sit still: 1 = Several days Becoming easily annoyed or irritable: 1 = Several days Feeling afraid as if something awful might happen: 0 = Not at all Total MORGAN-7 score (0-4 normal; 5-9 mild; 10-14 moderate; 15-21 severe): 3 Source: Developed by Drs. Len Gonzalez, Raegan James, Dago Richardson and colleagues, with an educational virginie from [employer]. Review of Systems Const Denies chills, Denies fatigue, Denies fever(s), Denies headache(s) and Denies weakness ENT Denies dizziness and Denies headache(s) Card Denies dyspnea Resp Denies cough, Denies dyspnea, Denies wheezing and Denies other (shortness of breath) Musc Reports back pain, Denies numbness and Denies tingling Neuro Denies dizziness, Denies headache(s), Denies numbness, Denies tingling and Denies weakness Psych Denies anxiety and Denies depression Endo Denies fatigue Aller/Immun Denies wheezing Physical exam (Primary Care) Vital Signs: Last Vital Signs Pulse 71 10/27/24 11:08 BP 152/96 H 10/27/24 11:13 Pulse Ox 99 10/27/24 11:08 Oxygen Delivery Method Room Air 10/27/24 11:08 BMI result Body Mass Index 34.2 Tobacco/Smoking Status: Tobacco use Status Tobacco use date assessed 02/14/24 10/27/24 11:11 Patient Tobacco Use Status Former Tobacco user 10/27/24 11:18 Tobacco use type Cigarette 10/27/24 11:18 e-Cigarette/Vaping Use Never Used 10/27/24 11:18 PHQ-9: PHQ-9 Score PHQ-9: Total score 2 10/27/24 11:11 Thrive Assessment: Date of Thrive Assessment Date Thrive assessed 10/20/24 10/27/24 11:11 Currently or been in a relationship where the following occur: No concerns reported Const General: well developed; No acute distress Nutritional Appearance: well nourished Orientation/consciousness: patient oriented x3 [facility] Head: Yes normocephalic and Yes atraumatic Eyes General: appearance normal, both eyes and all related structures Pupils: Equal, round and reactive pupils present EOM: EOMs intact bilaterally Resp Effort & Inspection: normal respiratory effort Auscultation: clear to auscultation bilaterally Cardio Rate: regular rate Rhythm: regular rhythm Heart sounds: S1 normal heart sound present, S2 normal heart sound present, no gallops, no murmurs and no rubs Neuro General: patient oriented x3 and gait normal Cranial nerves: Yes Equal, round and reactive pupils present Psych Affect: normal affect Coding Level of Care Code Est Pt Level 4 (75173) Diagnoses Hypertension I10 Low back pain M54.5 Assessment & Plan Assessment & Plan (1) Hypertension: Code(s): I10 - Essential (primary) hypertension Category: Medical Plan: Blood?pressure?is?elevated?today?but?patient?forgot?to?take?his?medication. He?says?his?blood?pressures?at?home?are?130s?systolic. Goal?is?less?than?140/90 Continue?current?medication.??Reminded?him?to?take?medication?as?prescribed. Encouraged?weight?loss.??Patient?gained?weight?since?last?check. (2) Low back pain: Code(s): M54.5 - Low back pain Category: Medical Plan: Patient?has?longstanding?intermittent?flares?of?back?pain. Managed?with?lidocaine.??Occasionally?pain?worsens. Not?using?chronic?use?of?opioids?but?will?provide?intermittent?short?courses?for?flare?up. Patient?uses?a?back?brace?and?advised?to?use?when?he?is?exerting?himself.??Otherwise?should?take?this?off. I?think?he?would?benefit?from?physical?therapy.??Patient?agrees?and?would?also?like?to?then exercise?at?the?[employer]?to?continue?exercise?and?strengthening?back?and?core?muscles Orders: Orders PT Evaluation and Treatment Today M47.817 - Spondylosis without myelopathy or radiculopathy, lumbosacral region Medications: New oxycodone-acetaminophen 5-325 mg (Percocet) Partial Fill upon patient request. 1 tab PO BID 3 days PRN 6 tabs 0RF pain Refilled lidocaine 5% (Lidoderm) leave on most painful area for up to 12 hrs 2 patches topical DAILY 30 days 60 ea 3RF lisinopril 20 mg PO DAILY 90 tabs 1RF I10 - Essential (primary) hypertension Discontinued oxycodone-acetaminophen 5-325 mg (Percocet) Partial Fill upon patient request. Discontinued Reason: Patient Completed Course 1 tab PO BID 3 days PRN 6 tabs 0RF pain
[2024-10-27 11:08] VITALS: BP 144/98; PULSE 71; O2SAT 99; BMI 34.2
[2024-10-27 11:13] VITALS: BP 152/96
== END 2024-10-27 11:49 | disposition home or self-care (01) ==
PROVIDERS: PCP Family Medicine; Visit Provider Family Medicine
DX: I10 Essential (primary) hypertension (principal); M54.50 Low back pain, unspecified

== ENCOUNTER → 2024-10-27 10:42 | Outpatient (BNVA) | payer MEDICARE, MEDICAID, SELFPAY | PROVIDERS: PCP Family Medicine; Visit Provider Family Medicine | DX: I10 Essential (primary) hypertension (principal); M54.50 Low back pain, unspecified | CPT/HCPCS: 99212 ==

== ENCOUNTER 2025-09-27 08:50 | Outpatient (AMB) | payer MEDICARE, SELFPAY ==
--- NOTE | 2025-09-27 09:01 | A.OFFPC_ITS ---
Vital Signs 09/27/25 09:08 Height 5 ft 7 in Weight 211 lb 6 oz BMI 33.1 BP 130/80 Blood Pressure Location Rt brachial Position Sitting Respiration 16 Pulse 58 Pulse Source Pulse Oximeter Temp 97.8 F Temp Source Oral Pulse Oximetry (%) 97 Oxygen Delivery Method Room Air Intake Visit Reasons: CPE with f/u labs and health maint. - see comments Intake Note: patient is scheduled for CPE Cat Scan Technologist Required: No Allergies ibuprofen (From Motrin) Allergy (Mild, Verified 09/27/25 09:05) RASH tramadol Allergy (Unknown, Verified 09/27/25 09:05) hives Medication List - Last Reconciled 09/27/25 by Sam Almazan MD lidocaine 5% (Lidoderm) 2 patches topical DAILY 30 days lisinopril 20 mg PO DAILY oxycodone-acetaminophen 5-325 mg (Percocet) 1 tab PO BID PRN 3 days Tobacco use date assessed: 09/27/25 Dental Screening Dental Screen Date: 09/27/25 Did you have a dental visit in the last 12 months?: Yes Did you have a dental problem in the last 6 months where you did not have access to dental care?: No Was dental information given to patient?: No HPI CPE with f/u labs and health maint. - see comments HPI Details 55 y/o male presents for a CPE with f/u labs and health maint. No recent labs to review. BP today 130/80, 58p. He is on lisinopril 20mg daily. HPI Comments History of Present Illness Details Documentation assistance for Sam Almazan MD, was provided by Maxx Marques,? Animal Taxonomist on 09/26/2025 at 9:33 AM KIRILL. I, Dr. Almazan, have read, observed, and verified documentation. ?? [facility] Medical History Umbilical hernia Chronic pain syndrome Generalized abdominal pain Complex regional pain syndrome i of left upper limb Spondylosis without myelopathy or radiculopathy, lumbosacral region Cervical postlaminectomy syndrome Surgical History History of carpal tunnel surgery of right wrist History of neck surgery History of lumbar fusion History of surgery on left wrist Family History Father Throat cancer Mother Type 2 diabetes mellitus Breast cancer Sister Stomach cancer Social History Household Members: Spouse and Children Housing: House Are you a primary career technical counselor to a significant other at home: No Do you presently have visiting nurse or other home services: No 75 years or older and lives alone: No Alcohol intake: never Patient Tobacco Use Status: Former Tobacco user Tobacco use type: Cigarette Cigarette Packs Per Day: 2 Years Smoked: 15 patient quit in November this year. e-Cigarette/Vaping Use: Never Used Second Hand Smoke Exposure: No service: No Current occupational status: disabled Current occupational exposures/hazards: No Sexual orientation: Unable to collect Gender identity: Unable to collect Cognitive needs: No Hearing needs: No Vision needs: No Questionnaire PHQ-9 Over the last 2 weeks, how often have you been bothered by any of the following problems? 1. Little interest or pleasure in doing things: nearly every day 2. Feeling down, depressed, or hopeless: not at all 3. Trouble falling or staying asleep, or sleeping too much: not at all 4. Feeling tired or having little energy: not at all 5. Poor appetite or overeating: not at all 6. Feeling bad about yourself - or that you are a failure or have let yourself or your family down: not at all 7. Trouble concentrating on things, such as reading the newspaper or watching television: not at all 8. Moving or speaking so slowly that other people could have noticed. Or the opposite - being so fidgety or restless that you have been moving around a lot more than usual: not at all 9. Thoughts that you would be better off or of hurting yourself in some way: not at all Total score: 3 Depression Screening Interpretation: Negative Depression Screening Done: Yes 75015 - PHQ-9 Billing: Yes Source: Developed by Drs. Len Gonzalez, Raegan James, Dago Richardson and colleagues, with an educational virginie from [employer] Thrive Questionnaire Date Thrive assessed: 09/27/25 I am a: Patient What is your living situation today?: I have a steady place to live Within the past 12 months, did the food you bought not last and you didn't have the money to get more?: Never true Within the past 12 months, did you worry whether your food would run out before you got money to buy more?: Never true Do you have trouble paying for medicines?: No Do you have trouble getting transportation to medical appointments?: No Do you have trouble paying your heating and electricity bill?: No Do you have trouble taking care of your child, family member or friend?: No Do you have trouble with day-to-day activities such as bathing, preparing meals, shopping, managing finances, etc.?: No Are you currently unemployed and looking for a job?: No Are you interested in more education?: No Please select the resources that you would like help with: None Currently or been in a relationship where the following occur: No concerns reported THRIVE Score: 0 AUDIT C Alcohol Use Questionnaire (AUDIT-C) 1. How often do you have a drink containing alcohol?: 2-4 times a month 2. How many drinks containing alcohol do you have on a typical day when you are drinking?: 1 or 2 3. How often do you have six or more drinks on one occasion?: Never Total Score: 2 Score Reviewed/Action Taken: Yes MORGAN-7 AMB Questionnaire MORGAN-7 Date MORGAN - 7 assessed: 09/27/25 Feeling nervous, anxious, or on edge: 0 = Not at all Not being able to stop or control worryin = Not at all Worrying too much about different things: 0 = Not at all Trouble relaxin = Not at all Being so restless that it is hard to sit still: 0 = Not at all Becoming easily annoyed or irritable: 0 = Not at all Feeling afraid as if something awful might happen: 0 = Not at all Total MORGAN-7 score (0-4 normal; 5-9 mild; 10-14 moderate; 15-21 severe): 0 Source: Developed by Drs. Len Gonzalez, Raegan James, Dago Richardson and colleagues, with an educational virginie from [employer] MORGAN-7 Assessment Billing MORGAN-7 Assessment Tool: MORGAN-7 Assessment 19839 ACT Questionnaire In the past 4 weeks, how much of the time did your asthma keep you from getting as much done at work, school or at home?: None of the time During the past 4 weeks, how often have you had shortness of breath?: Not at all During the past 4 weeks, how often did your asthma symptoms wake you up at night or earlier than usual in the morning?: Not at all During the past 4 weeks, how often have you had to use your rescue inhaler or nebulizer medication?: Not at all How would you rate your asthma control during the past 4 weeks?: Completely controlled ACT Interpretation: Negative Score: 25 Review of Systems Const Denies chills, Denies fatigue, Denies fever(s), Denies headache(s) and Denies weakness Eyes Denies change in vision ENT Denies dizziness, Denies headache(s), Denies hearing loss, Denies nasal congestion, Denies sinus pain, Denies sinus pressure and Denies sore throat Card Denies chest pain, Denies lightheadedness, Denies dyspnea and Denies other (palpitations) Resp Denies cough, Denies dyspnea and Denies wheezing GI Denies abdominal pain, Denies melena, Denies hematochezia, Denies change in bowel habits, Denies dyspepsia and Denies nausea Denies hematuria and Denies dysuria Musc Denies abnormal gait, Denies myalgias, Denies arthralgias, Denies numbness and Denies tingling Skin/Breast Denies rash, Denies unusual bruising and Denies wounds Neuro Denies abnormal gait, Denies dizziness, Denies headache(s), Denies memory loss, Denies numbness, Denies Sensory deficit (Neuro), Denies tingling and Denies weakness Psych Denies anxiety, Denies depression and Denies memory loss Endo Denies cold intolerance, Denies fatigue, Denies heat intolerance, Denies polydipsia and Denies polyuria Valentin/Lymph Denies easy bleeding and Denies easy bruising Aller/Immun Denies wheezing Physical exam (Primary Care) Vital Signs: Last Vital Signs Temp 97.8 F 09/27/25 09:08 Pulse 58 09/27/25 09:08 Resp 16 09/27/25 09:08 BP 130/80 09/27/25 09:08 Pulse Ox 97 09/27/25 09:08 Oxygen Delivery Method Room Air 09/27/25 09:08 BMI result Body Mass Index 33.1 Tobacco/Smoking Status: Tobacco use Status Tobacco use date assessed 09/27/25 09/27/25 09:11 Patient Tobacco Use Status Former Tobacco user 09/27/25 09:02 Tobacco use type Cigarette 09/27/25 09:02 e-Cigarette/Vaping Use Never Used 09/27/25 09:02 PHQ-9: PHQ-9 Score PHQ-9: Total score 3 09/27/25 09:26 Depression Screening Interpretation: Negative Thrive Assessment: Date of Thrive Assessment Date Thrive assessed 09/27/25 09/27/25 09:11 Currently or been in a relationship where the following occur: No concerns reported Const General: no acute distress, well developed, alert and awake Nutritional Appearance: well nourished Orientation/consciousness: patient oriented x3 HENMT Head: Yes normocephalic and Yes atraumatic Ears: hearing grossly normal bilaterally and TM's normal bilaterally General nose exam: Normal external nose present and Normal nares present Mouth: Normal oral and palatal mucosa present and moist mucous membranes Teeth and gingiva: dentition normal Throat: Yes posterior oropharynx normal Eyes General: appearance normal, both eyes and all related structures Pupils: Equal, round and reactive pupils present and Pupil accommodation reflex normal EOM: EOMs intact bilaterally Neck Neck: Yes normal visual inspection, Yes no lymphadenopathy and Yes trachea midline Thyroid: Thyroid normal Carotids: no bruits Lymphatic: no lymphadenopathy noted Chest Chest palpation & inspection: normal inspection of the chest Resp Effort & Inspection: normal respiratory effort Auscultation: clear to auscultation bilaterally Cardio Rate: regular rate Rhythm: regular rhythm Heart sounds: S1 normal heart sound present, S2 normal heart sound present, no gallops, no murmurs and no rubs Bruits: no abdominal aortic bruits and no carotid bruits GI Palpation (GI): No Abdominal aortic bruit present, Soft to palpation, nontender, No hepatosplenomegaly present and No Rebound tenderness present Auscultation: normal bowel sounds General: Yes no CVA tenderness Back/Spine/Pelvis Back: no CVA tenderness Cervical Spine: cervical ROM normal and No Cervical spine tenderness Thoracic/Lumbar Spine: thoraco-lumbar ROM normal, No pain with thoraco-lumbar ROM, No thoracic spinal tenderness and No lumbar spinal tenderness Skin Lesions: no lesions Rashes: no rashes Trauma: no lacerations or abrasions Wounds: no wounds Nails: normal Neuro General: patient oriented x3 Cranial nerves: Yes Equal, round and reactive pupils present Cognition (Neuro): normal cognition Gait exam (Neuro): Normal gait present Motor exam (neuro): 5/5 motor strength present throughout Sensory Exam: No Sensory deficit (Neuro) Deep tendon reflexes (DTR's): Right patellar reflex intensity grade: 2+ and Left patellar reflex intensity grade: 2+ Extrem General: Yes normal to inspection and No edema Psych Appearance: grossly normal Affect: normal affect Attitude: cooperative Thought process: Normal thought process present Coding Level of Care Code Est Pt Level 3 (93941) Est Pt Prev Care 40-64y(88639) Diagnoses Adult general medical exam Z00.00 Hypertension I10 Screening for prostate cancer Z12.5 Screening for colon cancer Z12.11 Additional Codes Asthma Control Questionnaire - ACT Interpretation: Negative ([id number]) MORGAN-7 Assessment Billing - MORGAN-7 Assessment Tool: MORGAN-7 Assessment 82359 ([id number]) PHQ-9 - 33937 - PHQ-9 Billing: Yes ([id number]) Assessment & Plan Assessment & Plan (1) Adult general medical exam: Code(s): Z00.00 - Encounter for general adult medical examination without abnormal findings Category: Medical Plan: 55-year-old male presents for complete physical exam Encouraged healthy diet with active lifestyle and plenty of exercise (2) Hypertension: Code(s): I10 - Essential (primary) hypertension Category: Medical Plan: Blood pressure is controlled. Goal is less than 140/90 Continue current medication (3) Screening for prostate cancer: Code(s): Z12.5 - Encounter for screening for malignant neoplasm of prostate Category: Medical Plan: Checking PSA with lab work (4) Screening for colon cancer: Code(s): Z12.11 - Encounter for screening for malignant neoplasm of colon Category: Medical Plan: Patient thinks he had a colonoscopy around age 48 He will try to let us know where this was performed and we get the report.
[2025-09-27 09:08] VITALS: BP 130/80; PULSE 58; RESP 16; TEMP 36.6; O2SAT 97; BMI 33.1
== END 2025-09-27 09:34 | disposition home or self-care (01) ==
LOC: HO.HMCFM 08:51
PROVIDERS: PCP Family Medicine; Visit Provider Family Medicine
DX: Z00.00 Encounter for general adult medical examination without abnormal findings (principal); I10 Essential (primary) hypertension; Z12.5 Encounter for screening for malignant neoplasm of prostate

== ENCOUNTER → 2025-09-27 08:50 | Outpatient (BNVA) | payer MEDICARE, SELFPAY | PROVIDERS: PCP Family Medicine; Visit Provider Family Medicine | DX: Z00.00 Encounter for general adult medical examination without abnormal findings (principal); I10 Essential (primary) hypertension | CPT/HCPCS: 96127; 96160; 99396 ==

== ENCOUNTER 2025-10-05 09:40 | Outpatient (REF) | payer MEDICARE, SELFPAY ==
--- OUTSIDE RECORDS SUMMARY | 2025-10-05 10:21 | XMS_ITS | Patient Health Record ---
Author Organization [facility] Address [address] [place] [id number] Care Team Providers Care Sales Assistant Entertainment And Media Name Role Phone Sam Almazan Primary Care Provider Len Christian [phone] Allergies Allergen (clinical drug ingredient) Drug/Non Drug Allergy documented on EMR Reaction Allergy Type Onset Date Status Motrin Unknown Drug Allergy Active tramadol Tramadol HCl Unknown Drug Allergy Acti ve Reason For Referral No Information Medications Medication SIG (Take, Route, Frequency, Duration) Notes Start Date End Date Status Lidocaine 5 % Patch 1 patch remove after 12 hours Externally Once a day Active Cyclobenzaprine HCl 10 MG Tablet TAKE 1 TABLET BY MOUTH TWICE A DAY FOR 10 DAYS Oral; Duration: 10 Active oxyCODONE-Acetaminophen 5-32 5 MG Tablet 1 tablet as needed Orally every 6 hrs Active Gabapentin 100 MG Capsule 2 CAPSULE TWIC E A DAY ORALLY 15 DAYS Oral; Duration: 20 Active Immunizations Vaccine Route Administration Date Status Comme nts Influenza Unknown 08/09/2019 Administered Social History Tobacco Use: Social History Observation Description Date Details (start date - stop date) Current Smoker NA - NA Social History Drugs/Alcohol: Social Info Question Answer Notes Alcohol Screen Did you have a drink containing alcohol in the past year? Yes How often did you have a drink containing alcohol in the past year? Monthly or less (1 point) How many drinks did you have on a typical day when you were drinking in the past year? 1 or 2 drinks (0 point) How often did you have 6 or more drinks on one occasion in the past year? Never (0 point) Points 1 Interpretation Negative Tobacco Use: Social Info Question Answer Notes Tobacco Use/Smoking Patient is a current smoker How often do you smoke cigarettes? some days, but not every day How many cigarettes a day do you smoke? 5 or less How soon after you wake up do you smoke your first cigarette? after 60 minutes Are you interested in quitting? Ready to quit Additional Details Category Social Info Options Details Miscellaneous: Marital status: Occupation: disabled Section Notes: Smoker 1 pack per week; no s ig alcohol Problems Problem Type SNOMED Code ICD Code Onset Dates Problem Status W/U Status Risk Notes Problem Screening for malignant neoplasm of colon (298644213) Encounter for screening for malignant neoplasm of colon (Z12.11) Active confirmed Problem Preprocedural examination ([id number]) Preprocedural examination (Z01.818) Active confirmed Plan Of Treatment Pending Test Test Name Order Date GI BIOPSY 01/08/2020 Future Test Test Name Order Date COLONOSCOPY 11/22/2019 Insurance Providers Payer Name Payer Address Payer Phone Subscriber Number Group Number Insured Name Patient Relationship to Insured Coverage Start Date Coverage End Date MEDICARE OF [place] [address] [place] [id number] HUMPHREY REESE Self - patient is the insured MEDICAID OF [facility] [address] [place] [address] [id number] HUMPHREY REESE Self - patient is the insured Medical (General) History Medical History History ICD Code Denies AL,DM,CVA,Lung disease,renal dise ase Chronic back pain and left wrist pain Sleep apnea--not using the CPAP regularl y Surgical History Surgery Date(Month/Year) Hernia repair with mesh >15 times Neck surgery for C-spine Back surgery for a stimulator but this w as subsequently removed Knee surgery- both Carpal tunnel release-left Multiple wrist surgeries from a fracture - left
--- OUTSIDE RECORDS SUMMARY | 2025-10-05 10:21 | XMS_ITS | Clinical Summary ---
Author Organization [facility] Address [address] [place] [address] Phone Care Team Providers Care Adzing And Boring Machine Operator Name Role Phone Sam Almazan MD Primary Care Provider Allergies Active Allergy Reactions Criticality Noted Date Comments Acetaminophen Rash Medium 04/17/2024 Ibuprofen Hives Medium 03/08/2006 occ. GI upset Tramadol Hives Medium 10/01/2006 Medications lisinopriL (PRINIVIL,ZESTR IL) 10 mg tablet Take 1 Tablet by mouth daily. Active senna-docusate (PERICOLACE) 8.6-50 mg per tablet Take 2 tablets by mouth at bedtime. 30 tablet 02/01/2025 Active Active Problems Problem Noted Date Diagnosed Date Obstructive sleep apnea syndrome 02/01/2025 HTN (hypertension) 02/01/2025 Arthritis of carpometacarpal (CMC) joint of righ t thumb 11/21/2023 Right carpal tunnel syndrome 11/21/2023 Cervicalgia 10/13/2006 Chest pain 10/13/2006 Umbilical hernia without obstruction and without gangrene 10/13/2006 Lumbago 09/26/2006 Resolved Problems Problem Noted Date Diagnosed Date Resolved Date Chronic obstructive pulmonar y disease (CMS/HCC V24, CMS/HCC V28) 02/01/2025 02/01/2025 Surgical History Surgery Date Site/Laterality Comments CARPAL TUNNEL RELEASE 02/23/2024 Right TRIGGER FINGER RELEASE 02/23/2024 Right long finger MENISCECTOMY DUPUYTREN CONTRACTURE RELEASE CERVICAL DISCECTOMY FINGER SURGERY 02/01/2025 Right thumb, trapeziectomy w/ interpostional arthroplasty Medical History Medical History Date Comments Hypertension RICHARD (obstructive sleep apnea) US ES CPAP Chronic pain of right thumb Social History Tobacco Use Types Packs/Day Years Used Date Smoking Tobacco: Former Cigarettes 0 Q uit: 2021 Smokeless Tobacco: Never Tobacco Cessation:Counseling Given: Not Answered Alcohol Use Standard Drinks/Week Comments Yes 0 (1 standard drink = 0.6 oz pur e alcohol) SOCIALLY Sex and Gender Information Value Date Recorded Sex Assigned at Male 02/01/2025 8:49 AM EDT Legal Sex Male 8:29 AM EST Gender Identity Male 02/01/2025 8:49 AM EDT Sexual Orientation Straight 02/01/2025 8: 49 AM EDT Obstetrics History Last Filed Vital Signs Vital Sign Reading Time Taken Comments Blood Pressure 121/94 02/01/2025 1:49 PM EDT Pulse 66 02/01/2025 1:49 PM EDT Temperature 35.7 C (96.3 F) 02/01/2025 1:49 PM EDT Respiratory Rate 20 02/01/2025 1:49 PM EDT Oxygen Saturation 95% 02/01/2025 1:49 PM EDT Inhaled Oxygen Concentration - - Weight 97.5 kg (215 lb) 04/13/2025 9:46 AM EDT Height 170.2 cm (5' 7 ) 04/13/2025 9:46 AM EDT Body Mass Index 33.67 04/13/2025 9:46 AM EDT Plan of Treatment Health Maintenance Due Date Last Done Comments Colorectal Cancer Screening: Colonoscopy 1968 Hepatitis A Vaccines (1 of 2 - Risk 2-dose series) 1987 Hepatitis B Vaccines (1 of 3 - 19+ 3-dose series) 1987 HIV Screening 06/13/2024 Hepatitis C Screening 06/13/2024 Medicare Annual Wellness Visit 06/13/2024 Social Influencers of Health Screening 06/13/2024 Depression Screening 11/15/2024 Hypertension/CHF/CAD Annual BMP Blood Test 02/01/2025 07/10/2008 COVID-19 Vaccine ( season) 2025 07/19/2024, 08/08/2023, 05/16/2022, Additional history exists Cholesterol Screening (Lipid Panel) 12/24/2028 12/24/2023 DTaP,Tdap,and Td Vaccines (2 - Td or Tdap) 10/24/2034 10/24/2024 RSV Immunization Adult Patients (1 - 1-dose 75+ series) 2043 Pneumococcal Vaccine: 50+ Years Completed 10/24/2024 Zoster Vaccines Completed 10/24/2024, 08/02/2024 Influenza Vaccine Completed 07/11/2025, , 08/08/2023, Additional history exists HIB Vaccines Aged Out No longer eligi ble based on patient's age to complete this topic HPV Vaccines Aged Out No longer eligi ble based on patient's age to complete this topic IPV Vaccines Aged Out No longer eligi ble based on patient's age to complete this topic MMR Vaccines Aged Out No longer eligi ble based on patient's age to complete this topic Meningococcal ACWY Vaccine Aged Out N o longer eligible based on patient's age to complete this topic Meningococcal B Vaccine Aged Out No l onger eligible based on patient's age to complete this topic RSV Immunization Patients Under 20 months Aged Out No longer eligible based on patient's age to complete this topic Varicella Vaccines Aged Out No longer eligible based on patient's age to complete this topic Medical Devices Implanted Type Area Temperer Device Identifier Shelf Expiration Date Model / Serial / Lot [employer] Sut Quick Mini 3-0 Orth - Sn/A - [id number] Implanted:Qty: 1 on 02/01/2025 by Rashmi Haynes MD at [facility] [employer] Sports Med Right: Thumb [employer] DEPUY MITEK 05/14/2027 [id number] / N/A / [id number] Spinal Hardware Spinal Hardware N/A: Neck Procedures Procedure Name Priority Date/Time Associated Diagnosis Comments LIPID PANEL Routine 12/24/2023 ANNUAL BMP BLOOD TEST Routine 07/10/2008 from Last 3 Months or Most Recently Relevant to Health Maintenance Results * Lipid panel (12/24/2023) LDL/HDL Ratio 3 <=5 Triglycerides 134 <=200 mg/dL Cholesterol 179 <=240 mg/dL HDL 53 >=40 mg/dL LDL Cholesterol 100 <=190 mg/dL Blood Venous blood specimen / Unknown Historical Provider LAB BLOOD ORDERABLES Yamile l Result * Annual BMP Blood Test (07/10/2008) Pathologist [facility] Annual BMP Blood Test Abstracted Historical Provider HEALTH MAINTENANCE Final Result from Last 3 Months or Most Recently Relevant to Health Maintenance Insurance [place] [address] MEDICAID - [place] Advance Directives * Full Code - Default (Latest Code Status on File) Date Activated Date Inactivated Comments 02/01/2025 8:57 AM 02/01/2025 5:01 PM This is orde r is used when code status has not been discussed with the patient, or code status is otherwise unknown/unconfirmed To update the patient's code status, place a code status order. Do not modify or discontinue any currently active code status orders. Care Teams Adzing And Boring Machine Operator Relationship Specialty Start Date End Date Sam Almazan MD [address] [place] [address] Dr Saleem [place] PCP - General 07/02/23
[2025-10-05 11:28] LABS: MANUAL DIFF FLAG NO
[2025-10-05 11:43] LABS: Hematocrit 47.0 % (42.0-52.0); Hemoglobin 15.5 g/dl (14.0-18.0); Imm Gran Abs Auto 0.02 X10*3/uL (0.00-0.03); Imm Gran Pct Auto 0.4 % (0.0-0.4); Lymphocytes Absolute Auto 1.9 X10*3/uL (1.2-4.9); Mean Corpuscular HGB Conc 33.0 g/dl (31.0-36.0); Mean Corpuscular Hemoglobin 29.5 pg (27.0-33.0); Mean Corpuscular Volume 89.4 fL (80.0-98.0); NRBC Abs Auto 0.000 X10*3/uL (0.0-0.012); NRBC Pct Auto 0.0 /100WBC (0.0-0.2); Platelet Count 135 X10*3/uL (160-400); Red Blood Count 5.26 X10*6/uL (4.60-5.80); White Blood Count 4.6 X10*3/uL (4.8-10.8)
[2025-10-05 12:09] LABS: Alanine Aminotransferase 43 U/L (0-40); Albumin Level 4.5 g/dL (3.5-5.0); Alkaline Phosphatase 86 U/L (39-117); Anion Gap 11 (12-20); Aspartate Amino Transferase 43 U/L (5-37); Blood Urea Nitrogen 21 mg/dL (9-16); Calcium 8.9 mg/dL (8.4-10.2); Carbon Dioxide 26 mmol/L (22-29); Chloride 108 mmol/L (96-108); Estimated Glomerular Filt Rate > 60; Potassium 4.4 mmol/L (3.3-5.1); Sodium 141 mmol/L (135-145); Total Protein 7.3 g/dL (6.5-8.0)
[2025-10-05 14:14] LABS: Appearance Urine Clear; Glucose Urine UA Negative (Negative); PH 6.0 (5.0-9.0); Specific Gravity - Urine 1.020 (1.005-1.025)
[2025-10-05 15:01] LABS: Microalbum/Creatinine Ratio Ur 52.3 ug/mg cr (<30)
== END 2025-10-05 09:41 | disposition home or self-care (01) ==
LOC: HO.WFDLDS 09:40
PROVIDERS: Visit Provider Family Medicine
DX: Z00.00 Encounter for general adult medical examination without abnormal findings (principal); Z12.5 Encounter for screening for malignant neoplasm of prostate; I10 Essential (primary) hypertension; E78.5 Hyperlipidemia, unspecified
CPT/HCPCS: 36415; 80053; 81003; 82043; 82570; 83721; 84153; 84443; 85025